=== PATIENT | male | born 1945 | race Caucasian/White ===

== ENCOUNTER → 2019-12-23 11:46 | Outpatient (BNVA) | payer OTHER, SELFPAY | PROVIDERS: Visit Provider Internal Medicine | DX: U07.1 COVID-19 (principal); J06.9 Acute upper respiratory infection, unspecified | CPT/HCPCS: 87635 ==

== ENCOUNTER 2024-02-26 10:55 | Outpatient (CLI) | payer OTHER, SELFPAY ==
[2024-02-26 11:37] LABS: Creatinine Urine, Random 249 mg/dL (39-259); Microalbumin Random Urine 11 ug/dL (0-20)
[2024-02-26 11:53] LABS: Calcium 9.6 mg/dL (8.5-10.5)
[2024-02-26 11:57] LABS: Microalbum Creatinine Ratio Ur 44 mg/dL (0-20)
[2024-02-26 12:00] LABS: Parathyroid Hormone 40.7 pg/mL (15-65)
[2024-02-26 12:18] LABS: Albumin Level 4.6 g/dL (3.5-5.2); Blood Urea Nitrogen 18 mg/dL (8-23); Calcium 9.5 mg/dL (8.5-10.5); Carbon Dioxide 23 mmol/L (22-29); Chloride 106 mmol/L (98-107); Glucose 112 mg/dL (65-115); Phosphorus 3.2 mg/dL (2.5-4.5); Sodium 142 mmol/L (136-145)
[2024-02-26 12:19] LABS: Anion Gap 17.1 (5-19); Potassium 4.1 mmol/L (3.5-5.1)
== END 2024-02-26 10:56 | disposition home or self-care (01) ==
PROVIDERS: Visit Provider Internal Medicine
DX: N18.31 Chronic kidney disease, stage 3a (principal)
CPT/HCPCS: 36415; 80069; 82044; 82310; 83970

== ENCOUNTER 2024-08-28 09:50 | Outpatient (CLI) | payer OTHER, SELFPAY ==
[2024-08-28 10:42] LABS: Basophils # 0.1 10^3/uL (0.0-0.1); Basophils % 0.6 %; Eosinophils # 0.4 10^3/uL (0.0-0.8); Eosinophils % 4.7 %; Lymphocytes # 2.1 10^3/uL (0.8-4.8); Lymphocytes % 26.8 %; Mean Corpuscular HGB Conc 32.6 g/dL (30-55); Mean Corpuscular Hemoglobin 29.8 pg (27-33); Mean Corpuscular Volume 91.4 fl (82-101); Mean Platelet Volume 9.1 fL (7.4-10.4); Monocytes # 0.8 10^3/uL (0.2-0.9); Monocytes % 10.5 %; Neutrophils # 4.45 10^3/uL (1.8-7.7); Neutrophils % 57.1 %; Nucleated Red Blood Cells % 0 %; Platelet Count 308 10^3/cmm (157-399); Red Blood Count 5.47 10^6/uL (3.85-5.65); Red Cell Distribution Width 13.3 % (12.1-15.1)
[2024-08-28 11:04] LABS: Albumin Level 4.3 g/dL (3.5-5.2); Blood Urea Nitrogen 22 mg/dL (8-23); Calcium 9.4 mg/dL (8.5-10.5); Carbon Dioxide 24 mmol/L (22-29); Chloride 105 mmol/L (98-107); Glucose 109 mg/dL (65-115); Phosphorus 2.6 mg/dL (2.5-4.5); Sodium 140 mmol/L (136-145)
[2024-08-28 11:10] LABS: Creatinine Urine, Random 191 mg/dL (39-259); Microalbumin Random Urine 8 ug/dL (0-20)
[2024-08-28 11:23] LABS: Microalbum Creatinine Ratio Ur 42 mg/dL (0-20)
[2024-08-28 14:11] LABS: Calcium 9.7 mg/dL (8.5-10.5)
[2024-08-28 14:17] LABS: Parathyroid Hormone 45.7 pg/mL (15-65)
== END 2024-08-28 09:51 | disposition home or self-care (01) ==
LOC: LAB 09:52
PROVIDERS: PCP Family Medicine; Visit Provider Internal Medicine
DX: N18.31 Chronic kidney disease, stage 3a (principal)
CPT/HCPCS: 36415; 80069; 82044; 82310; 83970; 85025